=== PATIENT | female | born 1980 | race American Indian/Alaskan Native ===

== ENCOUNTER 2020-08-29 11:23 | Inpatient (IN) | payer OTHER ==
[~2020-08-29] VITALS: Ht 160 cm; Wt 3.2 kg
[2020-08-29] MEDS ORDERED: SINGULAIR10 MG PO (14:50)
[2020-08-29] MEDS ORDERED: PRENATAL TABLE1 EAC1 PO (14:51)
[2020-08-29] MEDS ORDERED: ADULT LOW DOSE81 M1 PO (14:52)
== END 2020-09-01 14:39 | disposition home or self-care (01) | DRG 788 ==
LOC: SURG-SUITE 11:23 → LDR 11:23 → O/R 18:35 → SURG-SUITE 18:47
PROVIDERS: ADMIT Obstetrics & Gynecology; ATTEND Obstetrics & Gynecology
PROC: 4A1HXFZ Monitoring of Products of Conception, Cardiac Rhythm, External Approach (ICD-10-PCS; 2020-08-29)
PROC: 10D00Z1 Extraction of Products of Conception, Low, Open Approach (ICD-10-PCS; principal; 2020-08-29 15:00)
DX: O62.1 Secondary uterine inertia (principal); O42.02 Full-term premature rupture of membranes, onset of labor within 24 hours of rupture; Z3A.38 38 weeks gestation of pregnancy; Z37.0 Single live birth; Z20.822 Contact with and (suspected) exposure to COVID-19

== ENCOUNTER 2020-09-04 20:42 | Emergency (ER) | payer OTHER ==
[~2020-09-04] VITALS: Ht 167.6 cm; Wt 59.0 kg
[~2020-09-04 20:42] MED LIST: ADULT LOW DOSE81 M1 PO; PRENATAL TABLE1 EAC1 PO; SINGULAIR10 MG PO
== END 2020-09-04 23:32 | disposition home or self-care (01) ==
LOC: ER 20:42
DX: G44.89 Other headache syndrome (principal); M54.2 Cervicalgia; Z33.1 Pregnant state, incidental